=== PATIENT | female | born 1965 | race Two or more races ===

== ENCOUNTER 2017-11-20 08:43 | Outpatient (CLI) | payer OTHER ==
[~2017-11-20 08:43] MED LIST: HYZAAR 50-12.1 UDTAB; LEVOXYL25 MCG; PROTONIX40 MG PO; TOPROL XL100 M1; ZANTAC300 MG PO
== END 2017-11-20 08:50 | disposition home or self-care (01) ==
LOC: SONOGRAMA 08:43
DX: N60.12 Diffuse cystic mastopathy of left breast (principal)

== ENCOUNTER 2018-05-29 06:25 | Day surgery (SDC) | payer OTHER ==
[~2018-05-29 06:25] MED LIST changes: +SYNTHROID175 MCG PO
== END 2018-05-29 22:20 | disposition home or self-care (01) ==
LOC: CIR.AMB 06:25
DX: C50.312 Malignant neoplasm of lower-inner quadrant of left female breast (principal); N62 Hypertrophy of breast

== ENCOUNTER 2018-05-31 10:51 | Emergency (ER) | payer OTHER ==
[~2018-05-31] VITALS: Ht 154.9 cm; Wt 103.9 kg
== END 2018-05-31 16:27 | disposition home or self-care (01) ==
LOC: ER 10:51
DX: M79.662 Pain in left lower leg (principal)

== ENCOUNTER 2018-05-31 17:42 | Emergency (ER) | payer OTHER ==
[~2018-05-31] VITALS: Ht 154.9 cm; Wt 103.9 kg
== END 2018-05-31 22:35 | disposition home or self-care (01) ==
LOC: ER 17:42
DX: E16.1 Other hypoglycemia (principal); G45.9 Transient cerebral ischemic attack, unspecified; F41.8 Other specified anxiety disorders

== ENCOUNTER 2018-12-02 14:38 | Outpatient (CLI) | payer OTHER | END 2018-12-02 14:41 | disposition home or self-care (01) | LOC: SONOGRAMA 14:38 | DX: R10.2 Pelvic and perineal pain (principal) ==

== ENCOUNTER 2018-12-12 19:57 | Inpatient (IN) | payer OTHER ==
[~2018-12-12] VITALS: Ht 157.5 cm; Wt 104.3 kg
--- NOTE | 2018-12-12 20:16 | NUR ---
PTE REFIERE DOLOR ABDOMINAL HACE 24 HORAS SE TAMIKA S/V Y S EUBICA EN AREA DE OBSERVACION
[2018-12-12] MEDS ORDERED: PROTONIX20 MG (20:18)
[2018-12-12] MEDS ORDERED: TOPROL XL25 MG (20:18)
--- NOTE | 2018-12-12 20:48 | NUR ---
EVALUA PTE. SE ORIENTA A PTE SOBRE TX MEDICO. PTE REFIERE COMPRENDER. SE REALIZAN MUESTRAS DE LABORATORIO BAJO MEDIDAS ASEPTICAS. SE NOTIFICA CT. PROCEDIMIENTOS LLEVADOS A CABO POR .
--- NOTE | 2018-12-12 23:15 | NUR ---
SE RECIBE PTE DEL TURNO ANTERIOR, ALERTA Y ORIENTADA X3 ESFERAS, EN CAMA NIVEL MAS BAJO, WOOD DE IDENTIFICACION Y BARANDAS ELEVADAS POR PRECAUCION. SE OBSERVA CON BUEN PATRON RESPIRATORIO Y PIEL TIBIA AL TACTO. H/L PATENTE Y ROXANNE DE EDEMA O ERITEMA. PENDIENTE A CONSULTA CON DR WISDOM Y DR Jasvir ZAMORA.
== END 2018-12-15 15:14 | disposition home or self-care (01) | DRG 343 ==
LOC: ER 19:57 → SURH 23:11 → SEC-K 23:11 → SURH 12-13 03:24
PROVIDERS: ADMIT Surgery
PROC: BW21ZZZ Computerized Tomography (CT Scan) of Abdomen and Pelvis (ICD-10-PCS; 2018-12-13)
PROC: 0DTJ4ZZ Resection of Appendix, Percutaneous Endoscopic Approach (ICD-10-PCS; principal; 2018-12-13 00:15)
DX: K35.890 Other acute appendicitis without perforation or gangrene (principal); E03.8 Other specified hypothyroidism; I10 Essential (primary) hypertension; Z85.3 Personal history of malignant neoplasm of breast

== ENCOUNTER → 2019-01-12 | Outpatient (CLI) | payer OTHER ==
[~2019-01-12] MED LIST changes: +PROTONIX20 MG; +TOPROL XL25 MG
== END | disposition home or self-care (01) ==
LOC: NUCLEAR 10:00
DX: C50.212 Malignant neoplasm of upper-inner quadrant of left female breast (principal); Z51.12 Encounter for antineoplastic immunotherapy
CPT/HCPCS: 78472; 78496; A9560

== ENCOUNTER 2019-03-23 13:14 | Outpatient (CLI) | payer OTHER | END 2019-03-23 13:24 | disposition home or self-care (01) | LOC: NUCLEAR 13:14 | DX: I42.7 Cardiomyopathy due to drug and external agent (principal); C50.212 Malignant neoplasm of upper-inner quadrant of left female breast; Z51.12 Encounter for antineoplastic immunotherapy | CPT/HCPCS: 78472; 78496; A9560 ==

== ENCOUNTER 2019-04-19 22:50 | Emergency (ER) | payer OTHER ==
[~2019-04-19] VITALS: Ht 154.9 cm; Wt 102.1 kg
[2019-04-19] MEDS ORDERED: ZANTAC300 MG (23:23)
[2019-04-19] MEDS ORDERED: PROTONIX40 M1 (23:23)
== END 2019-04-20 05:16 | disposition home or self-care (01) ==
LOC: ER 22:50
DX: K52.9 Noninfective gastroenteritis and colitis, unspecified (principal)

== ENCOUNTER 2020-09-07 09:44 | Emergency (ER) | payer OTHER ==
[~2020-09-07] VITALS: Ht 152.4 cm; Wt 108.0 kg
[~2020-09-07 09:44] MED LIST changes: +PROTONIX40 M1; +ZANTAC300 MG
== END 2020-09-07 11:31 | disposition home or self-care (01) ==
LOC: ER 09:44
DX: N39.0 Urinary tract infection, site not specified (principal); K63.89 Other specified diseases of intestine

== ENCOUNTER 2021-04-22 12:15 | Emergency (ER) | payer OTHER ==
[~2021-04-22] VITALS: Ht 154.9 cm; Wt 110.7 kg
== END 2021-04-22 18:28 | disposition home or self-care (01) ==
LOC: ER 12:15
DX: N39.0 Urinary tract infection, site not specified (principal)

== ENCOUNTER 2025-03-06 11:28 | Emergency (ER) | payer OTHER ==
[~2025-03-06] VITALS: Ht 154.9 cm; Wt 114.8 kg
[2025-03-06] MEDS ORDERED: PRO-FAST SR37.5 MG (12:11)
[2025-03-06] MEDS ORDERED: TOPROL XL50 M1 (12:12)
[2025-03-06] MEDS ORDERED: AVAPRO300 MG (12:12)
[2025-03-06 13:20] LABS: COVID-19 AG NEGATIVE (NEGATIVE)
[2025-03-06 13:23] LABS: INFLUENZA A AG NEGATIVE (NEGATIVE)
== END 2025-03-06 13:43 | disposition home or self-care (01) ==
LOC: ER 11:32
PROVIDERS: General Practice
DX: T88.7XXA Unspecified adverse effect of drug or medicament, initial encounter (principal); Z20.822 Contact with and (suspected) exposure to COVID-19